=== PATIENT | female | born 1985 | race Caucasian/White ===

== ENCOUNTER 2023-12-30 20:04 | Emergency (ER) | payer OTHER ==
[~2023-12-30] VITALS: Ht 172.7 cm; Wt 62.6 kg
[2023-12-30 20:20] VITALS: BP 138/77; PULSE 69; RESP 12; TEMP 97; O2SAT 99
[2023-12-30 21:14] LABS: BASOPHILS # (AUTO) 0.1 K/uL (0.00-0.22); BASOPHILS % (AUTO) 0.7 % (0.0-2.0); EOSINOPHILS # (AUTO) 0.2 K/uL (0-0.4); EOSINOPHILS % (AUTO) 2.4 % (0.0-4.0); HEMATOCRIT 34.3 % (36-48); LYMPHOCYTES # (AUTO) 3.1 K/uL (2.5-16.5); LYMPHOCYTES % (AUTO) 33.3 % (20.5-51.1); MEAN CORPUSCULAR HEMOGLOBIN 32 pg (27-31); MEAN CORPUSCULAR HGB CONC 35 g/dL (33-37); MEAN CORPUSCULAR VOLUME 92.2 fL (80-94); MONOCYTES # (AUTO) 0.8 K/uL (0.8-1.0); MONOCYTES % (AUTO) 8.6 % (1.7-9.3); PLATELET COUNT (AUTO) 210 K/uL (140-450); RED BLOOD CELL COUNT(AUTO) 3.72 MIL/uL (4.20-5.40); RED CELL DISTRIBUTION WIDTH 13.1 % (11.6-13.7); WHITE BLOOD COUNT (AUTO) 9.2 K/uL (4.8-10.8)
[2023-12-30 21:25] LABS: CARBON DIOXIDE 31.4 mmol/L (21-32); CREATININE 0.7 mg/dL (0.6-1.3); POTASSIUM 3.4 mmol/L (3.5-5.1)
[2023-12-30] MEDS ORDERED: ONDANSETRON 4 MG/2 ML VIAL IVP ONE (23:00)
[2023-12-30] MEDS: NACL 0.9% 1,000 ML IV ONE (23:36)
[2023-12-30] MEDS ORDERED: METOCLOPRAMIDE 10 MG/2 ML INJ VIAL IVP ONE (23:55)
[2023-12-31] MEDS ORDERED: MEDR10TA PO (00:36)
[2023-12-31] MEDS ORDERED: FERR325E14 PO (00:36)
== END 2023-12-31 00:44 | disposition home or self-care (01) ==
LOC: MED 20:04
DX: N93.9 Abnormal uterine and vaginal bleeding, unspecified (principal); Z79.899 Other long term (current) drug therapy
CPT/HCPCS: 36415; 76830; 80048; 81002; 81025; 85025; 86886; 86900; 86901; 96360; 99284; J2405; J7030